=== PATIENT | female | born 1975 | race Two or more races ===

== ENCOUNTER 2019-12-13 15:28 | Emergency (ER) | payer MEDICAID ==
[~2019-12-13] VITALS: Ht 165.1 cm; Wt 113.4 kg
[~2019-12-13 15:28] MED LIST: CETI10CA
[2019-12-13 15:47] VITALS: BP 137/81
[2019-12-13] MEDS ORDERED: ACETAMINOPHEN 500 MG TAB PO ONE (17:15)
== END 2019-12-13 17:21 | disposition home or self-care (01) ==
LOC: ER 15:28
DX: S61.102A Unspecified open wound of left thumb with damage to nail, initial encounter (principal); W26.0XXA Contact with knife, initial encounter; Y93.89 Activity, other specified; Y92.89 Other specified places as the place of occurrence of the external cause; Y99.8 Other external cause status